=== PATIENT | female | born 1955 ===

== ENCOUNTER 2024-12-27 10:59 | Emergency (ER) | payer SELFPAY ==
[~2024-12-27] VITALS: Ht 167.6 cm; Wt 60.3 kg
[2024-12-27] MEDS ORDERED: Robaxin750 MG (11:09)
[2024-12-27] MEDS ORDERED: GABA100 (11:09)
[2024-12-27] MEDS ORDERED: Famotidine 10 MG/ML 2ML Vial IV ONE (11:15)
[2024-12-27] MEDS ORDERED: DiphenhydrAMINE HCl 50 MG/ML 1ML Vial IV ONE (11:15)
[2024-12-27] MEDS ORDERED: MethylPREDNISolone Sod Succ 125 MG Vial IV ONE (11:15)
[2024-12-27 12:07] LABS: Influenza A, PCR NEGATIVE (NEGATIVE); Influenza B, PCR NEGATIVE (NEGATIVE); Resp Syncytial Virus, PCR NEGATIVE (NEGATIVE); SARS-Cov-2 (COVID-19) PCR, MMC NEGATIVE (NEGATIVE)
[2024-12-27] MEDS ORDERED: FAMO20 PO (12:25)
[2024-12-27] MEDS ORDERED: BENADRYL25 M1 PO (12:25)
[2024-12-27] MEDS ORDERED: PRED20 PO (12:25)
== END 2024-12-27 12:34 | disposition home or self-care (01) ==
LOC: ER 10:59
PROVIDERS: Physician Assistant
DX: T78.40XA Allergy, unspecified, initial encounter (principal); Z79.52 Long term (current) use of systemic steroids; Z79.899 Other long term (current) drug therapy; Z59.89 Other problems related to housing and economic circumstances; X58.XXXA Exposure to other specified factors, initial encounter
CPT/HCPCS: 0241U; 87081; 87430; 96374; 96375; 99284-25; J1200; J2919